=== PATIENT | male | born 1960 | race Caucasian/White ===

== ENCOUNTER 2018-09-12 11:21 | Inpatient (IN) | payer BC ==
[2018-09-12] VITALS (10 sets, daily range): BP systolic 105–132; BP diastolic 52–74; PULSE 62–89; RESP 16–20; Ht 182.9 cm; Wt 93.2 kg
[~2018-09-12] VITALS: Ht 182.9 cm; Wt 93.2 kg
[~2018-09-12 11:21] MED LIST: SEVOFLURANE 15 MIN ONE; SUCCINYLCHOLINE CHLORIDE 100 MG/5 ML SYG IV ONE
[2018-09-12] MEDS ORDERED: POLYMYXIN/BACITRACIN 1L IRRIG ONE (11:44)
[2018-09-12] MEDS ORDERED: DIVA125T PO (12:10)
[2018-09-12] MEDS ORDERED: ALBU90AE INHALATION (12:10)
[2018-09-12] MEDS ORDERED: RANI150T35 PO (12:10)
[2018-09-12] MEDS ORDERED: BUPIVACAINE 0.25%/EPI (MDV) 50 ML VIAL INJ ONE (12:16)
[2018-09-12] MEDS ORDERED: SURGIFOAM POWDER 1 GM KIT ONE (12:16)
[2018-09-12] MEDS ORDERED: THROMBIN 5000 UNIT VIAL ONE ×2 (12:16→14:51)
[2018-09-12] MEDS ORDERED: CA CHLORIDE 10% 10 ML SYRINGE ONE ×2 (12:17→14:53)
--- NOTE | 2018-09-12 12:51 | PREAC ---
Date/Time of Note Date/Time of Note DATE: 09/12/18 TIME: 12:47 Anesthesia Eval and Record Evaluation Time Pre-Procedure Interview DATE: 09/12/18 TIME: 12:47 Age 57 Sex male NPO: 8 hrs Preoperative diagnosis right L5-S1 stenosis Planned procedure right L5-S1 decompression possible discectomy Past Medical History Past Medical History: Includes Pulm: Asthma Neuro: Other (migraines) GI: GERD Surgery & Anesthesia Issues No known issue Meds Anticoagulation: No Beta Mauri within 24 hr: No Reason Beta Mauri not given: Pt. not on B-Mauri Reported Medications Albuterol Sulfate (Proair Respiclick) 90 Mcg Aer.pow.ba, 1 PUFF INHALATION Q4, #1 BOTTLE 09/12/18 Ranitidine Hcl* (Zantac*) 150 Mg Tablet, 150 MG PO HS, #30 TAB 09/12/18 Divalproex Sodium* (Depakote*) 125 Mg Tablet.dr, 125 MG PO BID WITH MEALS, #120 TAB 09/12/18 Meds reviewed: Yes Allergies Coded Allergies: No Known Allergy (Unverified , 09/12/18) Allergies Reviewed: Yes Labs/Studies Labs Reviewed: Reviewed by anesthesiologist test: N/A Studies: ECG (NSR), CXR (NAD) Pre-procedure Exam Last vitals Vital Signs Date Temp Pulse Resp B/P (MAP) Pulse Ox O2 O2 Flow FiO2 Time Delivery Rate 09/12/18 98.0 82 18 117/74 96 Room Air 12:12 (88) Airway: Adequate mouth opening, Adequate thyromental dist Mallampati: Mallampati II Teeth: Normal Lung: Normal Heart: Normal ASA Physical Status ASA physical status: 2 Emergency: None Planned Anesthetic General/MAC: ETT Planned Pain Management Parenteral pain med Pre-operative Attestations Prior to commencing anesthesia and surgery, the patient was re-evaluated, there was verification of: *The patient's identity *The results of appropriate recent lab work and preoperative vital signs *The above evaluation not changing prior to induction *Anesthetic plan, risk benefits, alternative and complications discussed with patient/family; questions answered; patient/family understands, accepts and wishes to proceed. HAZEL WILLIS MD Sep 12, 2018 12:51
[2018-09-12] MEDS ORDERED: ONDANSETRON 4 MG INJ IV PRN (13:00)
[2018-09-12] MEDS ORDERED: MEPERIDINE 25 MG INJ IV PRN (13:00)
[2018-09-12] MEDS ORDERED: PROCHLORPERAZINE 10 MG INJ IV PRN (13:00)
[2018-09-12] MEDS ORDERED: HYDROmorphONE 1 MG/5 ML IV SYRINGE IV PRN ×3 (13:00)
[2018-09-12] MEDS ORDERED: FENTAnyl 50 MCG/ML VIAL IV PRN ×3 (13:00)
[2018-09-12] MEDS ORDERED: DIPHENHYDRAMINE 50 MG INJ IV PRN ×2 (13:00→13:30)
--- NOTE | 2018-09-12 13:09 | HPN ---
Date/Time of Note Date/Time of Note DATE: 09/12/18 TIME: 13:09 Interval H&P Admission Note Pt. seen H&P reviewed: No system changes TORIBIO KILPATRICK PA-C Sep 12, 2018 13:09
[2018-09-12] MEDS ORDERED: ROCURONIUM 50 MG INJ ONE (13:18)
[2018-09-12] MEDS ORDERED: PROPOFOL 20 ML ONE (13:18)
[2018-09-12] MEDS ORDERED: FENTAnyl 50 MCG/ML VIAL ONE (13:18)
[2018-09-12] MEDS ORDERED: SUCCINYLCHOLINE CHLORIDE 100 MG/5 ML SYG IV ONE (13:18)
[2018-09-12] MEDS ORDERED: LIDOCAINE 2% (SDV) 5 ML INJ ONE (13:18)
[2018-09-12] MEDS ORDERED: ACETAMINOPHEN 325 MG TAB PO PRN (13:30)
[2018-09-12] MEDS ORDERED: AL HYDROX/MG HYDROX/SIMETH 30 ML CUP PO PRN (13:30)
[2018-09-12] MEDS ORDERED: HYDROmorphONE 0.2 MG/ML PCA IV SCH (13:30)
[2018-09-12] MEDS ORDERED: CEPASTAT LOZENGE MT PRN (13:30)
[2018-09-12] MEDS ORDERED: BISACODYL 10 MG SUPP PR PRN (13:30)
[2018-09-12] MEDS ORDERED: NALOXONE (0.4 MG/ML) INJ IV PRN (13:30)
[2018-09-12] MEDS ORDERED: HYDROmorphONE 0.5 MG/0.5 ML SYG IV PRN (13:30)
[2018-09-12] MEDS ORDERED: DEXAMETHASONE 4 MG/ML 1 ML INJ ONE (13:55)
[2018-09-12] MEDS ORDERED: CEFAZOLIN 1 GM INJ ONE (13:55)
[2018-09-12] MEDS ORDERED: ONDANSETRON 4 MG INJ ONE (13:55)
[2018-09-12] MEDS ORDERED: FAMOTIDINE 20 MG INJ ONE (13:55)
[2018-09-12] MEDS ORDERED: HEPARIN 1000 UNITS/ML 10 ML INJ ONE (13:59)
[2018-09-12] MEDS ORDERED: GELATIN SIZE 100 SPONGE ONE (14:38)
[2018-09-12] MEDS ORDERED: HYDROmorphONE 2 MG/ML SYG ONE (15:03)
[2018-09-12] MEDS ORDERED: BUPIVACAINE 0.25% (MPF) 30 ML INJ ONE (15:50)
[2018-09-12] MEDS ORDERED: NEOSTIGMINE 3 MG/3 ML SYRINGE ONE (16:01)
[2018-09-12] MEDS ORDERED: GLYCOPYRROLATE 0.4 MG INJ ONE (16:01)
--- NOTE | 2018-09-12 16:13 | SIPON ---
Date/Time of Note Date/Time of Note DATE: 09/12/18 TIME: 16:12 Operative Report Preoperative Diagnosis Right L5-S1 stenosis, disc herniation, radiculopathy Postoperative Diagnosis Right L5-S1 stenosis, disc herniation, radiculopathy Operation/Procedure Performed Right L5-S1 decompression Right L5-S1 microdiscectomy Right L5 extraforaminal decompression Surgeon see signature line dietitian assistant Nancy Butcher PA-C Anesthesia: general Estimated blood loss: 10 - 50 ml's Transfusion Required none Specimen Right L5-S1 disc Grafts/Implants none Complications none ARMANDO CUI MD Sep 12, 2018 16:13
[2018-09-12] MEDS ORDERED: EPHEDrine SULFATE 50 MG/5 ML SYG ONE (16:14)
--- NOTE | 2018-09-12 16:22 | NUR ---
PT NOTE , ORDER ACKNOWLEDGED , PER RN REPORT PATIENT STILL IN OR , PLAN TO FOLLOW UP IN AM .
--- NOTE | 2018-09-12 16:22 | NUR ---
RECEIVED FROM OR VIA BED S/P L5S1 DECOMPRESSION, L5S1 MICRODISCECTOMY RT. L5 EXTRAFORAMINAL DECOMPRESSION. IV INFUSING RT. HAND #[id number] ANGIOCATH.
--- NOTE | 2018-09-12 16:36 | PAC ---
Date/Time of Note Date/Time of Note DATE: 09/12/18 TIME: 16:36 Post-Anesthesia Notes Post-Anesthesia Note Last documented vital signs Vital Signs Date Temp Pulse Resp B/P (MAP) Pulse Ox O2 O2 Flow FiO2 Time Delivery Rate 09/12/18 98.8 16:25 09/12/18 82 18 117/74 96 Room Air 12:12 (88) Activity: WNL Respiratory function: WNL Cardiovascular function: WNL Mental status: Baseline Pain reasonably controlled: Yes Hydration appropriate: Yes Nausea/Vomiting absent: Yes Comments BP: 110/58 HR: 85 RR: 15 T: 98.8 SaO2: 100% HAZEL WILLIS MD Sep 12, 2018 16:36
[2018-09-12] MEDS ORDERED: HYDROmorphONE 1 MG/5 ML IV SYRINGE IV ONE (17:05)
--- NOTE | 2018-09-12 17:20 | NUR ---
REPORT GIVEN TO MODE OSWALD. FAMILY CALLED AND NOTIFIED RE- STATUS AND ROOM ASSIGHNMENT. GRINDING MACHINE OPERATOR DIL.0.2MG./ML INITIATED FOR PAIN MANAGEMENT . DRESSING TO LOWER BACK DRYAND INTACT. ICE PACK APPLIED. SCD ON BOTH LEGS. MOVEMENT AND SENSATION PRESENT. IV PATENT.
--- NOTE | 2018-09-12 18:00 | NUR ---
RECEIVED REPORT FROM HOME SALES CONSULTANTMODE [place]. RECEIVED PATIENT TO UNIT AT 1750 WITH RIGHT L5-S1 DECOMPRESSION AND L5-S1 MICRO DISCKECTOMY BY DR. MERCADO. PATIENT ALERT , ORIENTED, VITALS STABLE. LOWER BACK SURGICAL SITE INTACT AND NO BLEEDING OR DRAINAGE NOTED. ICE PACK GIVEN. SCD ON ON DILAUDID HOOKER MACHINE TENDER . IVSITE INTACT AND PATENT WITH FLUID ON FLOW. STARTED WITH ICE CHIPS AND WILL ADVANCE TOLERATED. INCENTIVE SPIROMETER GIVEN AND INSTRUCTED. PER FAMILY THEY WILL BRING BRACE IN THE AM. ALL SAFETY PRECAUTIONS EXPLAINED AND AND MAINTAINED SUCH BED IN THE LOWEST POSITION, ALARMS ON, BRAKES ON, CALL LIGHT WITHIN REACH. WILL CONTINUE TO MONITOR.
--- NOTE | 2018-09-12 20:21 | OPR ---
DATE OF OPERATION: 09/12/2018 PREOPERATIVE DIAGNOSES: 1. Right L5 to S1 central and paracentral disk herniation. 2. Right L5 to S1 stenosis. 3. Right L5 foraminal stenosis. 4. Right lumbar radiculopathy. POSTOPERATIVE DIAGNOSES: 1. Right L5 to S1 central and paracentral disk herniation. 2. Right L5 to S1 stenosis. 3. Right L5 foraminal stenosis. 4. Right lumbar radiculopathy. OPERATIONS PERFORMED: 1. Right L5 to S1 hemilaminotomy, partial medial facetectomy, foraminotomy. 2. Right L5 to S1 lumbar microdiskectomy. 3. Right L5 extraforaminal decompression with 7.5 mm Baxano shaver. 4. Use of C-arm fluoroscopy with interpretation without radiologist present. 5. Use of operative microscope. 6. Intraoperative neuromonitoring. PRIMARY SURGEON: Elieser Velasquez MD BOARDER HAND: Nancy Butcher PA-C NEED FOR SHIPSMITH: During this spinal surgical procedure, my life science research assistant was used to retract and protect the spinal nerves and dural sac. My life science research assistant also employed the suction catheters to ev acuate blood from the surgical field to improve visualization of the neural structures. The assistan t was medically necessary to facilitate the completion of the surgery in a safe and expeditious [facility]. [facility] regulations, as well as hospital bylaws, preclude the use of non-licensed [facility] personnel, such as operating room technicians, to perform these functions. ESTIMATED BLOOD LOSS: Less than 40 mL. DRAINS: None. SPECIMENS: Right L5 to S1 disk excision. COMPLICATIONS OF PROCEDURES: None. ANESTHESIOLOGIST: Ashleigh Jones MD TYPE OF ANESTHESIA: General. INDICATIONS FOR PROCEDURE: This is a 57-year-old gentleman with right low back pain with radiating s ymptoms down the right leg in the setting of right-sided stenosis as well as a disk herniation at L5 to S1. He has failed nonoperative measures; therefore I recommended he undergo the above procedure. Preoperatively, we discussed risks, benefits and alternatives. He understood and wished to proceed. FINDINGS: Neuromonitoring at the start of the case revealed right L5 amplitude down 30%, right S1 do wn 50%. At the end of the case, nerve signals returned to normal. The patient had severe right fora nelsy stenosis. There are large facets a bone spike into the foramen. He also has thickening of the ligamentum flavum on the right side adding to the stenosis. Furthermore, there was a right-sided an d central herniation at the L5 to S1 compressing the S1 nerve root. DESCRIPTION OF PROCEDURE IN DETAIL: The patient was identified in the preoperative holding area, giv en Ancef antibiotics in the operating room where he was successfully placed under general anesthesia. Neuromonitoring leads were placed, sequential compressive devices were applied. Remote intraoperat gino neuromonitoring was performed by Dr. Paul from 11:32 until 16:11 to include SSEP, MEP and EM G performed by [employer]. Incision was at 2:00 p.m. closed at 4:11 p.m. The patient was take n to the operating table in prone position over a Ramon frame. All bony prominences were well padde d. The back was then prepped and draped in usual sterile fashion. Using the C-arm fluoroscope, I id entified the incision site. I anesthetized the skin with Marcaine and epinephrine. Incision was the n made over the L5 to S1 level. Incision was taken down to dorsal fascia, which was incised with Bov ie cautery. I then subperiosteally dissected the right L5 and S1 lamina. Zari retractors were sravani janeen. Kerrison was placed in what was felt to be the L5 lamina and repeat lateral films obtained to c onfirm the correct levels. Once this was confirmed, microscope was brought in and a right-sided aaron laminotomy, partial medial facetectomy and foraminotomy was performed at the L5 to S1 level. Microsc ope was brought in. Ligamentum flavum was sharply dissected. The ligamentum flavum was quite thick laterally and I went out laterally in order to remove the ligamentum flavum. I then identified the S 1 nerve root which my life science research assistant retracted medially. I identified the annulus and there appeared to b e a central and right-sided herniation. I made a small slit annulotomy through which I removed multi ple free fragments. There is larger fragments more centrally, which were removed. Once the diskecto my was completed, I irrigated the disk space. I then turned my attention to the L5 foramen. There was a large facet spike superiorly which I was a ble to remove with a Kerrison punch. Then under C-arm guidance, I utilized the [employer] 7.5 mm shaver device in order to perform an extraforaminal decompression of the right L5 nerve root. I used neurom onitoring to confirm the nerve root was safe during this procedure and was able to thoroughly decompr ess the right L5 nerve root. The foramen was quite stenotic. Once the decompressions were completed , all nerve signals returned to normal. There is quite a bit of vascularization around the area and achieved hemostasis with bipolar cautery, Gelfoam, thrombin, and Surgifoam. The wound and disk space were irrigated. Valsalva maneuver was performed and there was no leak of CSF. The wound was dry an d therefore not to place a drain. I injected PPP and thrombin over the dura for hemostatic purposes. Retractors were then removed. I then closed deep fascia with #1 Vicryl stitch. I closed subcutane ous tissue with a 2-0 Vicryl stitch. Plain Marcaine was then injected. Microscope was taken off the field. A 4-0 Monocryl closure was then performed. Dermabond was then applied. The patient was the n awakened from anesthesia and taken to the recovery room in stable condition. Lap, sponge and needl e counts were correct x2. There were no apparent complications during the procedure. The patient will be admitted to the orthopedic ernst for routine postoperative care to include pain co ntrol, neurovascular checks, antibiotics and physical therapy. Dictated By: ELIESER VELASQUEZ MD BB/NATE Conf#: [id number] DID#: [id number] CC: SHARMIN JOHN MD;*EndCC*
[2018-09-12] MEDS: D5W-0.45 NACL + KCL 20 MEQ 1,000 ML IV SCH ×2 (20:35→23:03)
[2018-09-12] MEDS: CEFAZOLIN 1 GM/50 ML (PMX) 50 ML IVPB SCH ×2 (20:36→20:42)
[2018-09-12] MEDS: DIVALPROEX (EC) 125 MG TAB PO SCH (20:40)
[2018-09-12] MEDS: RANITIDINE 150 MG TAB PO SCH (20:41)
[2018-09-12] MEDS: DOCUSATE SODIUM 100 MG CAP PO SCH (20:41)
--- NOTE | 2018-09-12 21:32 | CONS ---
DATE OF ADMISSION: 09/12/2018 DATE OF CONSULTATION: 09/12/2018 POSTOP MEDICAL CONSULTATIVE NOTE REQUESTING PHYSICIAN: Elieser Velasquez MD Thank you very much for allowing me to evaluate this 57-year-old male who just underwent lumbar back surgery. HISTORICAL EVENTS: As you well know, this patient has had ongoing pain involving the right low back as well as right leg radiculopathy. Because of the lack of conservative intervention to provide impr ovement, he elected to proceed with surgery. MRIs were done of both the cervical, thoracic and lumba r spine. Postoperatively, he is in recovery and he is comfortable with vital signs being normal. PAST MEDICAL AND SURGICAL HISTORY: GERD and chart reveals a history of Lyme disease, hernia surgery, appendectomy and wrist surgery. MEDICATIONS: Include Advil p.r.n. and Zantac. SOCIAL HISTORY: He is a composer musician, nonsmoker, nondrinker. PHYSICAL EXAMINATION: GENERAL: Comfortable-appearing male in no acute distress. VITAL SIGNS: BP 118/76, pulse 72, respirations were 18. He was afebrile. EYES: Extraocular muscles were grossly full. NOSE, MOUTH, AND THROAT: Dryness of mucous membranes. NECK: No jugular venous distention, thyroid enlargement or adenopathy. LUNGS: Clear. HEART: Rhythm regular, no murmur. ABDOMEN: Nontender. Liver and spleen were not palpable. No mass or tenderness were noted. EXTREMITIES: No edema. NEUROLOGIC: No lateralizing motor weakness. IMPRESSION: 1. Stable postop lumbar back surgery. 2. History of peptic disease. We will continue H2 sofia at night. 3. Questionably on Depakote. We will confirm once he is alert why he is taking this and continue if appropriate. Dictated By: SHARMIN JOHN MD MR/NTS Conf#: [id number] DID#: [id number]
--- NOTE | 2018-09-13 00:43 | NUR ---
MODE ADAME will continuing to take care for the Patient till morning time; Patient alert, oriented x4, slow using INFORMATION SECURITY ANALYST; VS stable and normal; start to urinate good using urinal. Full report given to MODE ADAME.
--- NOTE | 2018-09-13 01:15 | NUR ---
RECEIVED PT. FROM MODE HA FOR CONTINUITY OF CARE. PT. A AND O X 4; VS IS WNL; WILL CONTINUE WITH A PLAN OF CARE.
[2018-09-13] MEDS: CEFAZOLIN 1 GM/50 ML (PMX) 50 ML IVPB SCH (05:08)
--- NOTE | 2018-09-13 06:08 | NUR ---
END OF SHIFT NOTE: PATIENT IS A AND O X 4; NOT IN DISTRESS. VS IS WNL; ALL MEDICATIONS HAVE BEEN GIVEN ORDERED AND PRN; ALL NEEDS ATTENDED; CALL LIGHT WITHIN REACH ; WILL ENDORSE TO THE DAY SHIFT RN
[2018-09-13] MEDS: D5W-0.45 NACL + KCL 20 MEQ 1,000 ML IV SCH ×2 (07:00→19:09)
[2018-09-13 07:22] VITALS: BP 93/55; PULSE 64; RESP 18
[2018-09-13] MEDS: DIVALPROEX (EC) 125 MG TAB PO SCH ×2 (08:37→17:55)
[2018-09-13] MEDS: DOCUSATE SODIUM 100 MG CAP PO SCH ×2 (08:38→21:15)
--- NOTE | 2018-09-13 08:40 | NUR ---
PT EVAL Therapy day number 1 Evaluation Start Time 08:40 Evaluation Total Time 0 min Subjective Current complaint of pain Pain Scale NUMERIC Pain Intensity 8 (0-10) Patient Stated Goal for Pain Relief 0 (0-10) Pain Level Comment back pain/surgical site pain Pre Treatment Vital Signs Stable Yes Exercise Assessment Label Bilat Lower Extremity Exercise Type Active ROM Additional Exercise Comments semi-supine APs, heel slides Supine to Sit Contact Guard Assist Transfer Sit to Stand Ability Stand by Assist Bed Mobility Sit to Supine Minimum Assist Bed Transfer Ability Contact Guard Assist Chair Transfer Ability Contact Guard Assist Sitting Tolerance 15 min Additional Mobility Comments log-roll Patient uses wheelchair Not Applicable Gait Assist Levels Contact Guard Assist Assistive Devices Front Wheel Walker Ambulation Distance 40 feet Additional Gait Comments short step length B, decreased toe off, slow tamir, increased B UE suppor Additional Stairs Assist Comments TBA Static Sitting Balance Good Dynamic Sitting Balance Good Standing Static Balance Fair plus Dynamic Standing Balance Fair plus Additional Balance Assessments Comments FWW Safety Judgement Good Activity Tolerance Good Equipment Present A pump IV pump SAP SECURITY ARCHITECT Additional Equipment Present LS BRACE Post Treatment Pain Intensity 8 0-10 Variance Documentation SEE PT EVAL PT Technical Record Comment PT EVAL Pt is a 57 yo M with PMH of GERD, lyme disease, R LBP, R radiculopathy who is now S/P R L5-S1 hemilaminectomy, partial medial facetectomy, foraminotomy and R L5-S1 lumbar microdiskectomy. Pt received in 4W ,med/surg. Precautions: spinal precautions, LS brace PRN PLOF: Pt lives with in 2SH with 0STE. Bedroom on 2nd floor, shower access on first if needed. Ambulatory without assist, does not own any DME. Was driving and works from home. Reports also works from home, able to assist as needed. CLOF: MODE Oconnor cleared pt for PT evaluation. Pt received in bed, vitals assessed at 108/64, 80bpm 95%O2 sats on RA. Pt educated in spinal precautions, use of LS brace, and purpose of PT evaluation. Bed mobility, transfer, and gait assessment as described above. Pt donned LS brace for all OOB activities, able to maintain spinal precautions with mobility. Pt returned to bed, alarm activated, all needs in reach, no signs of distress, RN notified of pt's status. Recommendation: Pt demonstrates slow, steady tamir with occasional instances of pain with ambulation (40'with FWW, CGA), relying only UE support. Pt able to maintain spinal precautions with all mobility. Anticipating home discharge once cleard by MD with family assistance as needed. Anticipated DME: FWW, 3:1 commode. Plan; Continue c PT POC (QID x 7), gait normalizaiton, stair training, PT CLEARED TO AMB TO RESTROOM WITH WOOD PANEL INSPECTOR USING FWW
[2018-09-13] MEDS: HYDROCODONE/APAP (10/325) TAB PO PRN ×4 (10:07→19:22)
--- NOTE | 2018-09-13 11:00 | NUR ---
PATIENT ALERT , ORIENTED . COMFORTABLE IN THE AM, VITALS STABLE. PATIEBNT TOBACCO DRUMMER DISCONTINUED PER ORDER. PHYSIO SEEN THE PATIENT AND CLEARED FOR BATHROOM PRIVILAGES. DIET TOLERATED. IV FLUID ON FLOW. RIGHT ARM IV INTACT AND PATENT. PATIENT SURGICAL SITE INTACT AND PATENT . NO BLEEDING NOTED. ALL SAFETY PRECAUTIONS CONTINUED SUCH BED IN THE LOWEST POSITION, ALARMS ON, BRAKES ON, CALL LIGHT WITHIN REACH. ENCOURAGED TO USE CALL LIGHT. WILL CONTINUE TO MONITOR.
--- NOTE | 2018-09-13 11:19 | CONS ---
Date/Time of Note Date/Time of Note DATE: 09/13/18 TIME: 11:15 Assessment/Plan Assessment/Plan Hospital Course S/p lumbar spine surgery POD #1 doing well Complex migraines: no current issues Assessment/Plan 1. Stable postop lumbar back surgery. 2. History of peptic disease. We will continue H2 sofia at night. 3. Depakote for migraine ppx. Pt would prefer to hold for now, which I am agreeable to 4. Pain medication as written 5. PT/OT. OOB activity Result Diagram: 09/13/18 0438 09/13/18 0438 Results 24hrs Laboratory Tests Test 09/13/18 04:38 09/13/18 06:59 White Blood Count 9.0 Red Blood Count 4.40 L Hemoglobin 13.7 L Hematocrit 40.0 L Mean Corpuscular Volume 90.9 Mean Corpuscular Hemoglobin 31.1 Mean Corpuscular Hemoglobin Concent 34.3 Red Cell Distribution Width 12.2 Platelet Count 110 L Mean Platelet Volume 11.5 H Immature Granulocytes % 0.200 Neutrophils % 77.2 H Lymphocytes % 14.6 L Monocytes % 7.8 Eosinophils % 0.1 Basophils % 0.1 Nucleated Red Blood Cells % 0.0 Immature Granulocytes # 0.020 Neutrophils # 6.9 Lymphocytes # 1.3 Monocytes # 0.7 Eosinophils # 0.0 Basophils # 0.0 Nucleated Red Blood Cells # 0.0 Sodium Level 140 Potassium Level 4.3 Chloride Level 108 Carbon Dioxide Level 26 Anion Gap 6 Blood Urea Nitrogen 12 Creatinine 0.83 Est Glomerular Filtrat Rate mL/min > 60 Glucose Level 121 Calcium Level 8.7 Magnesium Level 2.2 Lab Scanned Report REFERENCE LAB Consultation Date/Type/Reason Admit Date/Time Sep 12, 2018 at 11:21 Initial Consult Date 09/12 Type of Consult Internal Medicine Reason for Consultation Medical comanagement 24 HR Interval Summary Free Text/Dictation Pt doing well. Now on oral pain meds. Has ambulated. No BM yet. No fevers. VSS. Detailed Summary Eyes: no complaints ENT: no complaints Respiratory: no complaints Cardiovascular: no complaints Gastrointestinal: no complaints Musculoskeletal: other (minimal L thigh numbness) Neurologic: no complaints Exam/Review of Systems Vital Signs Vitals Vital Signs Date Temp Pulse Resp B/P (MAP) Pulse Ox O2 O2 Flow FiO2 Time Delivery Rate 09/13/18 98.0 64 18 93/55 (43) 96 07:22 09/12/18 Room Air 19:36 09/12/18 10.0 16:50 Intake and Output 09/12/18 09/12/18 09/13/18 1515:00 23:00 07:00 IntakeIntake Total 1400 ml 350 ml 1400 ml OutputOutput Total 65 ml 1200 ml BalanceBalance 1400 ml 285 ml 200 ml Exam Constitutional: alert, oriented, well developed Head: normocephalic, atraumatic Eyes: nl conjunctiva Neck: supple, non-tender Respiratory: clear to auscultation Cardiovascular: regular rate and rhythm Gastrointestinal: soft, non-tender Musculoskeletal: nl extremities to inspection Additional Comments Back incision healing appropriately Medications Medications Current Medications Potassium Chloride/Dextrose/ Sod Cl 1,000 ml @ 100 mls/hr Q10H IV Last administered on 09/13/18at 07:00; Admin Dose 100 MLS/HR; Start 09/12/18 at 13:09 Acetaminophen/ Hydrocodone Bitart ([place] (10/325)) 1 tab Q4H PRN PO PAIN LEVEL 1-5; Start 09/12/18 at 13:30 Acetaminophen/ Hydrocodone Bitart ([place] (10/325)) 2 tab Q4H PRN PO PAIN LEVEL 6-10 Last administered on 09/13/18at 10:07; Admin Dose 2 TAB; Start 09/12/18 at 13:30 Hydromorphone HCl (Dilaudid) 0.2 mg Q1H PRN IV BREAKTHROUGH PAIN; Start 1 11/13/17 at 13:30 Ondansetron HCl (Zofran Inj) 4 mg Q6H PRN IV NAUSEA AND/OR VOMITING; Start 09/12/18 at 13:30 Bisacodyl (Dulcolax Supp) 10 mg DAILY PRN [place] CONSTIPATION; Start 09/12/18 at 13:30 Docusate Sodium (Colace) 100 mg BID PO Last administered on 09/13/18at 08:38; Admin Dose 100 MG; Start 09/12/18 at 21:00 Al Hydrox/Mg Hydrox/Simethicone (Mag-Al Plus) 15 ml Q6H PRN PO CONSTIPATION; S tart 09/12/18 at 13:30 Acetaminophen (Tylenol Tab) 650 mg Q4H PRN PO FEVER; Start 09/12/18 at 13:30 Cyclobenzaprine HCl (Flexeril) 10 mg TID PRN PO MUSCLE SPASMS; Start 09/12/18 at 13:30 Phenol (Cepastat Lozenge) 1 lozenge PRN PRN [place] SORE THROAT; Start 09/12/18 at 13:30 Diphenhydramine HCl (Benadryl) 25 mg Q6H PRN IV ITCHING; Start 09/12/18 at 13:30 Naloxone HCl (Narcan) 0.2 mg Q2M PRN IV DECREASED REPIRATORY RATE; Start 09/12/18 at 13:30 Hydromorphone HCl (Dilaudid FAMILY MEDICINE RESIDENT) FAMILY MEDICINE RESIDENT to be started in PACU Q4PCA IV Last administered on 09/12/18at 17:07; Admin Dose 6 MG; Start 09/12/18 at 13:30 Miscellaneous Information 1. Hold FAMILY MEDICINE RESIDENT at 1,000... FAMILY MEDICINE RESIDENT IV ; Start 09/12/18 at 13:30 Divalproex Sodium (Depakote) 125 mg BID WITH MEALS PO Last administered on 09/13/18at 08:37; Admin Dose 125 MG; Start 09/12/18 at 18:00 Ranitidine HCl (Zantac) 150 mg HS PO Last administered on 09/12/18at 20:41; Admin Dose 150 MG; Start 09/12/18 at 21:00 MINGO TRAVIS MD Sep 13, 2018 11:19
--- NOTE | 2018-09-13 11:36 | PN ---
Date/Time of Note Date/Time of Note DATE: 09/13/18 TIME: 11:35 Assessment/Plan Lines/Catheters IV Catheter Type (from Nrsg): Peripheral IV Li in Place (from Nrsg): No Assessment/Plan Assessment/Plan The patient is postoperative day 1 status post lumbar decompression and discectomy. He is having back spasms and not yet ready for discharge. He will continue to work with physical therapy once he is cleared by physical therapy and pain is controlled he will be discharged to home with follow-up arranged with the undersigned Subjective 24 Hr Interval Summary Complains of back spasm Exam/Review of Systems Vital Signs Vitals Vital Signs Date Temp Pulse Resp B/P (MAP) Pulse Ox O2 O2 Flow FiO2 Time Delivery Rate 09/13/18 98.0 64 18 93/55 (68) 96 07:22 09/12/18 Room Air 19:36 09/12/18 10.0 16:50 Intake and Output 09/12/18 09/12/18 09/13/18 1515:00 23:00 07:00 IntakeIntake Total 1400 ml 350 ml 1400 ml OutputOutput Total 65 ml 1200 ml BalanceBalance 1400 ml 285 ml 200 ml Exam Free Text/Dictation Neuro intact Results Result Diagram: 09/13/18 0438 09/13/18 0438 ARMANDO CUI MD Sep 13, 2018 11:36
--- NOTE | 2018-09-13 12:05 | NUR ---
PT NOTE Therapy day number 1 Subjective Current complaint of pain Pain Scale NUMERIC Pain Intensity 8 (0-10) Patient Stated Goal for Pain Relief 0 (0-10) Pain Level Comment back pain/surgical site Pre Treatment Vital Signs Stable Yes Transfer Training Start Time 11:25 Supine to Sit Stand by Assist Transfer Sit to Stand Ability Stand by Assist Bed Mobility Sit to Supine Stand by Assist Bed Transfer Ability Contact Guard Assist Chair Transfer Ability Contact Guard Assist Toileting Ability Supervised Sitting Tolerance 5 min Additional Mobility Comments log-roll Transfer Training End Time 11:38 Total Transfer Training Time 13 min (8-127) Gait Training Start Time 11:38 Gait Assist Levels Contact Guard Assist Assistive Devices Front Wheel Walker Ambulation Distance 120 feet Additional Gait Comments short step length, increased reciprocity, improved tamir though still slo Gait Training End Time 12:05 Total Gait Training Treatment Time 27 min (8-127) Additional Stairs Assist Comments TBA Static Sitting Balance Good Dynamic Sitting Balance Good Standing Static Balance Good Dynamic Standing Balance Fair plus Additional Balance Assessments Comments FWW Safety Judgement Good Activity Tolerance Good Equipment Present A pump IV pump Additional Equipment Present LS BRACE Post Treatment Pain Intensity 8 0-10 Variance Documentation SEE PT NOTE Total Treament Time 40 min (8-127) Total Minutes 40 Total Units 3 PT Technical Record Comment PT NOTE S: Pt continues to report back pain, pre-medicated O: MODE Oconnor cleared pt for PT session. Pt received in bed, re-educated in spinal precautions. Pt participated in bed mobility, transfer, and gait interventions above. Noted with gait, improved gait tamir though still very slow, short step length B, reliance on UE support, forward flexed posture unable to stand erect due to increased back pain, increased B LE knee flexion with B stance. Pt returned to bed, all needs in reach, bed alarm activated. RN notified of pt's status. A: Pt with improved gait distance and tamir, though still ambs very slowly due to pain. Pt improving with independence in mobility tasks, able to maintain spinal precautions. P: Continue c PT POC; stair training initiation next session
[2018-09-13 14:00] VITALS: BP 108/64; PULSE 85; RESP 18
--- NOTE | 2018-09-13 14:41 | NUR ---
PT NOTE Therapy day number 1 Subjective Current complaint of pain Pain Scale NUMERIC Pain Intensity 7 (0-10) Patient Stated Goal for Pain Relief 0 (0-10) Pain Level Comment back pain/surgical site Pre Treatment Vital Signs Stable Yes Transfer Training Start Time 14:10 Supine to Sit Stand by Assist Transfer Sit to Stand Ability Stand by Assist Bed Mobility Sit to Supine Supervised Bed Transfer Ability Stand by Assist Chair Transfer Ability Stand by Assist Sitting Tolerance 5 min Additional Mobility Comments log-roll Transfer Training End Time 14:25 Total Transfer Training Time 15 min (8-127) Gait Training Start Time 14:25 Gait Assist Levels Stand by Assist Assistive Devices Front Wheel Walker Ambulation Distance 80 feet Additional Gait Comments short step length, very slow tamir, increased knee flexion B, improved po Gait Training End Time 14:41 Total Gait Training Treatment Time 16 min (8-127) Additional Stairs Assist Comments TBA Static Sitting Balance Good Dynamic Sitting Balance Good Standing Static Balance Good Dynamic Standing Balance Fair plus Additional Balance Assessments Comments FWW Safety Judgement Good Activity Tolerance Good Equipment Present A pump IV pump Additional Equipment Present LS BRACE Post Treatment Pain Intensity 7 0-10 Variance Documentation SEE PT NOTE Total Treament Time 31 min (8-127) Total Minutes 31 Total Units 2 PT Technical Record Comment PT NOTE S: Pt reports increased back pain this session, also reports nausea and lightheadedness in standing after ~40' of ambulation. Pt expressed concern for going home due to increased pain with transitional movements. O: MODE Oconnor cleared pt for PT session. Pt received in bed. Pt participated in interventions above, SBA-SPV for all mobility. Pt returned to bed, all needs in reach, bed alarm activated. RN notified of pt's nausea and status. A: Pt gait distance (80' total) limited due to increased nausea, lightheadness. Pt continues to improve in independence with all mobility tasks (SBA-SPV) though movements are labored, slow, due to increased back pain. Able to maintain spinal precautions throughout. Pt deferred stair training this date due to increased pain, but pt does have shower access on first floor. P: Continue c PT POC
[2018-09-13] MEDS: ONDANSETRON 4 MG INJ IV PRN (14:54)
--- NOTE | 2018-09-13 15:15 | NUR ---
PT NOTE Therapy day number 1 Subjective Current complaint of pain Pain Scale NUMERIC Pain Intensity 8 (0-10) Patient Stated Goal for Pain Relief 0 (0-10) Pain Level Comment back pain, surgical site Transfer Training Start Time 15:15 Supine to Sit Supervised Transfer Sit to Stand Ability Stand by Assist Bed Mobility Sit to Supine Supervised Additional Mobility Comments log roll method using BR and over head trapeze Transfer Training End Time 15:32 Total Transfer Training Time 17 min (8-127) Gait Training Start Time 15:32 Gait Assist Levels Stand by Assist Assistive Devices Front Wheel Walker Ambulation Distance 180 feet Additional Gait Comments very slow tamir, reciprocal gait, NBOS, decreased step length/stride Gait Training End Time 16:00 Total Gait Training Treatment Time 28 min (8-127) Additional Stairs Assist Comments Pt refused due to high pain Static Sitting Balance Good Dynamic Sitting Balance Good Standing Static Balance Good Dynamic Standing Balance Fair plus Additional Balance Assessments Comments FWW Safety Judgement Good Activity Tolerance Good Equipment Present A pump IV pump Additional Equipment Present LS BRACE for OOB activities Post Treatment Pain Intensity 8 0-10 Variance Documentation SEE BELOW AND PT NOTE Total Treament Time 45 min (8-127) Total Minutes 45 Total Units 3 PT Technical Record Comment PT NOTE S: Pt stated, "I am still in a lot of pain, but at least I am not nauseous or dizzy anymore." Agreeable for PT and cleared per MODE Chaney O: Received pt in supine, asleep. VCs to rouse. Bed mobility using BR and over head trapeze log roll method Supervised. Pt donned/doffed LSO brace at EOB w/Cornelius for OOB activities. Applied gait belt at EOB. STS to FWW SBA. Gait training performed w/FWW 180' SBA/Supervised. Noted very slow tamir, reciprocal gait, NBOS, decreased step length/stride, intermittent increased BUE pressure on AD, and no LOB/buckling. Pt required 3 standing rest breaks due to pain. Assisted pt back to room BTB. Left pt in comfort position, call light/phone within reach, bed alarmed, SCD's reapplied, and all needs met. MODE Rodriguez. informed of pt's status. A: Good tolerance to tx. Pt showed no signs of distress or SOB during or after tx. No c/o dizziness or nausea throughout tx. Bed mobility and gait distance improved compared to previous tx. Pt refused stairs training for this PT session due to increased pain, but is willing to attempt tomorrow. P: Continue POC and progress as tolerated.
--- NOTE | 2018-09-13 15:30 | NUR ---
CONTACTED DR. CUI REGARDING THE PATIENT AT THIS TIME PATIENT IS NOT CLEARED BY PT FOR STAIRS AND COMPLAINING OF PAIN AND PATIENT REQUESTED TO STAY FOR ANOTHER NIGHT. SAID OK . INFORMED WAREHOUSE WORKER 2ND SHIFT NIKKO REGARDING THE PATIENT STAY. PATIENT CONTINUED WITH PAIN MANAGEMENT AND ALL SAFETY PRECAUTIONS CONTINUED. WILL CONTINUE TO MONITOR.
--- NOTE | 2018-09-13 15:58 | NUR ---
Case Mngt: Spoke with patient, confirmed home address and phone number. Patient also stated that he does not have bedside commed and FWW at home. Order for BSC & FWW faxed to [facility] at F: [phone] T: [phone], will follow up.
[2018-09-13] MEDS: CYCLOBENZAPRINE 10 MG TAB PO PRN (16:02)
--- NOTE | 2018-09-13 18:40 | NUR ---
END OF SHIFT NOTE: PATIENT COMFORTABLE IN THE PM AND PAIN MANAGEMENT CONTINUED. ALL SAFETY PRECAUTIONS CONTINUED . PERIOPERATIVE EDUCATOR ROSARIO WATSON FOLLOWED UP AND ORGANIZING THE FRONT WHELL WALKER AND COMMODE. WILL CONTINUE TO MONITOR.
[2018-09-13] MEDS: RANITIDINE 150 MG TAB PO SCH (21:15)
[2018-09-14 02:30] VITALS: BP 108/56; PULSE 103; RESP 18
[2018-09-14] MEDS: HYDROCODONE/APAP (10/325) TAB PO PRN ×4 (04:46→23:33)
[2018-09-14] MEDS: D5W-0.45 NACL + KCL 20 MEQ 1,000 ML IV SCH ×2 (05:07→15:09)
[2018-09-14] MEDS: ONDANSETRON 4 MG INJ IV PRN ×2 (06:43→19:56)
[2018-09-14] MEDS: DIVALPROEX (EC) 125 MG TAB PO SCH ×2 (07:50→17:55)
[2018-09-14 07:58] VITALS: BP 112/60; PULSE 91; RESP 18
[2018-09-14] MEDS: DOCUSATE SODIUM 100 MG CAP PO SCH ×2 (09:27→20:33)
--- NOTE | 2018-09-14 10:46 | NUR ---
PT NOTE , 2 Subjective Current complaint of pain Pain Scale NUMERIC Pain Intensity 5 (0-10) Patient Stated Goal for Pain Relief 0 (0-10) Pain Level Comment BACK PAIN Pre Treatment Vital Signs Stable Yes Exercise Assessment Label Bilat Lower Extremity Exercise Type Active ROM Additional Exercise Comments AP, KNEE FLEX, EXT, LOG ROLL TR , ISOMETRIC EXE'S BLE'S . Exercise Start Time 09:30 Exercise End Time 09:42 Total Exercise Time 12 min (8-127) Transfer Training Start Time 09:42 Supine to Sit Stand by Assist Transfer Sit to Stand Ability Stand by Assist Bed Mobility Sit to Supine Stand by Assist Bed Transfer Ability Stand by Assist Chair Transfer Ability Stand by Assist Toileting Ability Supervised Sitting Tolerance 12 min Additional Mobility Comments LOG ROLL TR Transfer Training End Time 09:54 Total Transfer Training Time 12 min (8-127) Patient uses wheelchair Not Applicable Gait Training Start Time 09:54 Gait Assist Levels Stand by Assist Assistive Devices Front Wheel Walker Ambulation Distance 300 feet Additional Gait Comments SLOW ANNIKA , REQUIRES FREQUENT STANDING REST PERIODS DURING GAIT TR Gait Training End Time 10:25 Total Gait Training Treatment Time 31 min (8-127) Additional Stairs Assist Comments REFUSED STAIR TR IN AM . Static Sitting Balance Good Dynamic Sitting Balance Good Standing Static Balance Good Dynamic Standing Balance Good Additional Balance Assessments Comments W/FWW Safety Judgement Good Activity Tolerance Good Equipment Present A pump Additional Equipment Present L/S CORSET Post Treatment Pain Intensity 3 0-10 Variance Documentation SEE BELOW . Total Treament Time 55 min (8-127) Total Minutes 55 Total Units 4 PT Technical Record Comment PT NOTE , S: RN CLEARED , PATIENT AGREEABLE ,PATIENT WAS PRE-MEDICATED FOR PAIN , PATIENT IS EXTREMELY SLOW C/O BACK PAIN AND SEVERE STIFFNESS . O: RE-INSTRUCTED THE PATIENT IN SAFETY, LOG ROLL, SPINE PRECAUTION , BODY MECHANICS AND POSTURE CORRECTION , GAIT W/FWW EXTREMELY SLOW WITH SLOW ANNIKA GAIT PATTERN , GAIT W/FWW STEADY AND STABLE , NO LOB NOTED , PATIENT REQUIRES MULTIPLE STANDING REST PERIODS DUE TO FATIGUE EASILY , UNWILLING TO PERFORM STAIR TR. RETURNED BACK TO BED SBA , VS STABLE TOLERATED TREATMENT WELL , PATIENT IS CLEARED TO GET OOB WITH NSG STAFF , DON / DOFF L/S CORSET IND . A: DC PLANNING PER MD RECOMMENDATION PATIENT WILL NEED FWW AND BED SIDE COMMODE ONCE DC HOME WITH FAMILY . P: CONTINUE WITH POC
--- NOTE | 2018-09-14 11:00 | NUR ---
PT REPORTED THAT THE PATIENT STATED HE WILL NOT BE DISCHARGED TODAY.
[2018-09-14] MEDS ORDERED: KETOROLAC 30 MG INJ IV STA (12:15)
[2018-09-14] MEDS: CYCLOBENZAPRINE 10 MG TAB PO PRN (12:20)
--- NOTE | 2018-09-14 12:53 | CONS ---
Date/Time of Note Date/Time of Note DATE: 09/14/18 TIME: 12:50 Assessment/Plan Assessment/Plan Hospital Course S/p lumbar spine surgery POD #1 doing well Complex migraines: no current issues Assessment/Plan 1. Continue PT, OOB activity 2. Add miralax BID, continue bowel regimen. Can try suppository tomorrow if no BM 3. Ok to hold Depakote, pt does not want to use it currently (for migraine ppx) 4. DVT ppx Result Diagram: 09/13/1843709/[id number]/18437 Consultation Date/Type/Reason Admit Date/Time Sep 12, 2018 at 11:21 Initial Consult Date 09/12 Type of Consult Internal Medicine Reason for Consultation Medical co-management 24 HR Interval Summary Free Text/Dictation Doing well. L thigh numbness resolving. Ambulating. Pain controlled. No BM or flatus yet. No RUSSO/migraine. No fevers Constitutional: no complaints Detailed Summary Eyes: no complaints Respiratory: no complaints Cardiovascular: no complaints Gastrointestinal: no complaints, constipation Neurologic: no complaints Exam/Review of Systems Vital Signs Vitals Vital Signs Date Temp Pulse Resp B/P (MAP) Pulse Ox O2 O2 Flow FiO2 Time Delivery Rate 09/14/18 99.5 91 18 112/60 91 07:58 (77) 09/12/18 Room Air 19:36 09/12/18 10.0 16:50 Intake and Output 09/13/18 09/13/18 09/14/18 1515:00 23:00 07:00 IntakeIntake Total 1000 ml 1000 ml OutputOutput Total 1300 ml 300 ml BalanceBalance -300 ml 1000 ml -300 ml Exam Constitutional: alert, oriented, well developed Psych: no complaints, nl mood/affect Head: normocephalic, atraumatic Eyes: nl conjunctiva Respiratory: clear to auscultation, normal air movement Cardiovascular: regular rate and rhythm, nl pulses Gastrointestinal: soft, non-tender Neurological: SUGAR PLANTATION MANAGER II-XII intact, nl mental status Medications Medications Current Medications Potassium Chloride/Dextrose/ Sod Cl 1,000 ml @ 100 mls/hr Q10H IV Last administered on 09/13/18at 07:00; Admin Dose 100 MLS/HR; Start 09/12/18 at 13:09 Acetaminophen/ Hydrocodone Bitart (Alexander (10325)) 1 tab Q4H PRN PO PAIN LEVEL 1-5 Last administered on 09/14/18at 09:33; Admin Dose 1 TAB; Start 09/12/18 at 13:30 Acetaminophen/ Hydrocodone Bitart (Alexander ()) 2 tab Q4H PRN PO PAIN LEVEL 6-10 Last administered on 09/14/18at 04:46; Admin Dose 2 TAB; Start 09/12/18 at 13:30 Hydromorphone HCl (Dilaudid) 0.2 mg Q1H PRN IV BREAKTHROUGH PAIN Last administered on 09/14/18at 06:43; Admin Dose 0.2 MG; Start 09/12/18 at 13:30 Ondansetron HCl (Zofran Inj) 4 mg Q6H PRN IV NAUSEA AND/OR VOMITING Last administered on 09/14/18at 06:43; Admin Dose 4 MG; Start 09/12/18 at 13:30 Bisacodyl (Dulcolax Supp) 10 mg DAILY PRN [place] CONSTIPATION; Start 09/12/18 at 13:30 Docusate Sodium (Colace) 100 mg BID PO Last administered on 09/14/18at 09:27; Admin Dose 100 MG; Start 09/12/18 at 21:00 Al Hydrox/Mg Hydrox/Simethicone (Mag-Al Plus) 15 ml Q6H PRN PO CONSTIPATION; Start 09/12/18 at 13:30 Acetaminophen (Tylenol Tab) 650 mg Q4H PRN PO FEVER; Start 09/12/18 at 13:30 Cyclobenzaprine HCl (Flexeril) 10 mg TID PRN PO MUSCLE SPASMS Last administered on 09/14/18at 12:20; Admin Dose 10 MG; Start 09/12/18 at 13:30 Phenol (Cepastat Lozenge) 1 lozenge PRN PRN MT SORE THROAT; Start 09/12/18 at 13:30 Diphenhydramine HCl (Benadryl) 25 mg Q6H PRN IV ITCHING; Start 09/12/18 at 13:30 Naloxone HCl (Narcan) 0.2 mg Q2M PRN IV DECREASED REPIRATORY RATE; Start 09/12/18 at 13:30 Hydromorphone HCl (Dilaudid DAIRY BACTERIOLOGIST) DAIRY BACTERIOLOGIST to be started in PACU Q4PCA IV Last administered on 09/12/18at 17:07; Admin Dose 6 MG; Start 09/12/18 at 13:30 Miscellaneous Information 1. Hold DAIRY BACTERIOLOGIST at 1,000... DAIRY BACTERIOLOGIST IV ; Start 09/12/18 at 13:30 Divalproex Sodium (Depakote) 125 mg BID WITH MEALS PO Last administered on 09/13/18at 08:37; Admin Dose 125 MG; Start 09/12/18 at 18:00 Ranitidine HCl (Zantac) 150 mg HS PO Last administered on 09/13/18at 21:15; Admin Dose 150 MG; Start 09/12/18 at 21:00 MINGO TRAVIS MD Sep 14, 2018 12:53
--- NOTE | 2018-09-14 13:20 | PN ---
DATE: 09/14/2018 The patient is complaining of persistent low back discomfort and spasms. He is having difficulty wit h physical therapy. He held off on therapy this morning. A dose of Toradol will be prescribed to se e if that will reduce his pain to allow him to continue further physical therapy. Once he is cleared by physical therapy, he will be discharged to home. If we can control his pain, this may be later t arthur if not tomorrow. Dictated By: ARMANDO CUI MD BB/NTS Conf#: [id number] DID#: [id number] CC: SHARMIN JOHN MD;*End*
--- NOTE | 2018-09-14 13:30 | NUR ---
Case Mngt F/U: Bedside Commode and FWW delivered at patient's bedside and paperwork signed by patient.
[2018-09-14] MEDS: POLYETHYLENE GLYCOL 17 GM PACKET GTB SCH ×2 (14:18→20:33)
[2018-09-14 14:23] VITALS: BP 116/71; PULSE 86; RESP 18
--- NOTE | 2018-09-14 18:03 | NUR ---
EOSS: PT'S HEMODYNAMICS AND RESPIR. STATUS ARE STABLE. NO COMPLICATIONS. NO CHANGES IN CONDITION. PAIN MGMT IS EFFECTIVE. WILL CONT. MONITORING. WILL CONT. W/ THE PLAN OF CARE.
[2018-09-14] MEDS: RANITIDINE 150 MG TAB PO SCH (20:33)
[2018-09-14 20:55] VITALS: BP 121/67; PULSE 86; RESP 18
[2018-09-15] MEDS: D5W-0.45 NACL + KCL 20 MEQ 1,000 ML IV SCH ×2 (00:42→11:09)
[2018-09-15 03:25] VITALS: BP 109/63; PULSE 89; RESP 18
[2018-09-15 04:00] VITALS: BP 100/73; PULSE 67; RESP 16
--- NOTE | 2018-09-15 06:51 | NUR ---
END OF SHIFT SUMMARY: PATIENT RESTING COMFORTABLY. V/S STABLE. PATIENT GIVEN NORCO X 1 THIS SHIFT. VOIDING WELL AND PASSING GAS, NO BM THIS SHIFT. CALL LIGHT AND PHONE IN PLACE. INSTRUCTED PATIENT TO CALL FOR ASSISTANCE. BED ALARM SET. WILL ENDORSE PLAN OF CARE TO AM RN.
[2018-09-15 07:40] VITALS: BP 104/57; PULSE 64; RESP 18
--- NOTE | 2018-09-15 08:45 | NUR ---
PT NOTE Therapy day number 3 Subjective Current complaint of pain Pain Scale NUMERIC Pain Intensity 8 (0-10) Patient Stated Goal for Pain Relief 0 (0-10) Pain Level Comment back pain, R hamstring, R groin Pre Treatment Vital Signs Stable Yes Exercise Assessment Label Bilat Lower Extremity Exercise Type Active ROM Additional Exercise Comments pt ed, abdominal bracing with BLE Heel slides, BUE GHJ alternat flex Exercise Start Time 08:30 Exercise End Time 08:45 Total Exercise Time 15 min (127) Transfer Training Start Time 08:45 Transfer Sit to Stand Ability Stand by Assist Bed Mobility Sit to Supine Stand by Assist Bed Transfer Ability Stand by Assist Chair Transfer Ability Stand by Assist Toileting Ability Supervised Sitting Tolerance 10 min Additional Mobility Comments log roll, bed flat, no BR or trapeze Transfer Training End Time 09:10 Total Transfer Training Time 25 min () Gait Training Start Time 09:10 Gait Assist Levels Stand by Assist Assistive Devices Front Wheel Walker Ambulation Distance 200 feet Additional Gait Comments slow tamir, steady, recipr, 2 standing rest stops due to pain, no LOB Gait Training End Time 09:25 Total Gait Training Treatment Time 15 min () Stair Training Start Time 09:25 Stair Climbing Ability Stand by Assist Number of Stairs 16 Stairs Additional Stairs Assist Comments 4 stairs up/down x4, 2 HR, good sequencing, no buckl/LOB, decr tamir Stair Training End Time 09:40 Total Stair Training Time 15 min (127) Static Sitting Balance Good Dynamic Sitting Balance Good Standing Static Balance Good Dynamic Standing Balance Good Additional Balance Assessments Comments w/ FWW Safety Judgement Good Activity Tolerance Good Equipment Present A pump Additional Equipment Present L/S CORSET Post Treatment Pain Intensity 8 0-10 Variance Documentation See Below Total Treament Time 70 min (127) Total Minutes 70 Total Units 5 PT Technical Record Comment PT NOTE S: Pt reports back pain, requests pain med post-PT. Cleared for PT per MODE Villalpando. O: Pt received on toilet wearing LS corset, with FWW, TAX COMMISSIONER in room to assist, pt in no apparent distress. Pt transferred to with SBA FWW, VC for AD mgmt and transfer safety. Transported pt to PT gym for stair tr. Performed stair tr, gait tr, transfer tr, bed mobility tr and pt ed for thera ex/ stretches per tech record with SBA to supervised assist, using FWW. Pt with slow tamir, steady, reciprocal gait, 2 standing rest stops due to pain, no LOB/buckling, improved upright posture and decreased upper trap activation with VC. Pt BTB and positioned for comfort post-tx with call light and needs in reach, bed alarm armed, MODE Villalpando present in room, pt in no apparent acute distress. A: Pt liliya tx well, with good safety awareness and good return demo bed mobility with spinal precautions. Continues to be limited by pain. P: Cont POC
[2018-09-15] MEDS: HYDROCODONE/APAP (10/325) TAB PO PRN (09:41)
[2018-09-15] MEDS: DIVALPROEX (EC) 125 MG TAB PO SCH ×2 (09:42→17:55)
[2018-09-15] MEDS: POLYETHYLENE GLYCOL 17 GM PACKET GTB SCH (09:42)
[2018-09-15] MEDS: DOCUSATE SODIUM 100 MG CAP PO SCH (09:42)
--- NOTE | 2018-09-15 16:39 | NUR ---
DISCHARGE NOTE: Patient was educated on all discharge instructions and verbalized understanding. Patient's IV access was removed with catheter tip intact and dry gauze applied to site. Patient had no questions at discharge. Patient waiting for spouse to pick him up and take him. Patient has all DMEs.
--- NOTE | 2018-09-15 18:31 | NUR ---
NURSE NOTE: Patient left hospital in stable condition. Patient refused to take bedside commode.
--- NOTE | 2018-09-17 12:16 | DS ---
Date/Time of Note Date/Time of Note DATE: 09/17/18 TIME: 12:15 Discharge Summary Admission/Discharge Info Admit Date/Time Sep 12, 2018 at 11:21 Discharge Date/Time Sep 15, 2018 at 18:30 Discharge Diagnosis Status post lumbar decompression Patient Condition: Fair Procedures Lumbar decompression and discectomy Hospital Course Patient was admitted to the orthopedic ernst after undergoing the above procedure. His postoperative course was uncomplicated however he did have issues with pain control and to be cleared by physical therapy. Ultimately he was cleared and discharged to home in stable condition with follow-up arranged with the undersigned Home Meds Reported Medications Albuterol Sulfate (Proair Respiclick) 90 Mcg Aer.pow.ba, 1 PUFF INHALATION Q4, #1 BOTTLE 09/12/18 Ranitidine Hcl* (Zantac*) 150 Mg Tablet, 150 MG PO HS, #30 TAB 09/12/18 Divalproex Sodium* (Depakote*) 125 Mg Tablet.dr, 125 MG PO BID WITH MEALS, #120 TAB 09/12/18 Primary Care Provider Not On Staff Doctor ARMANDO CUI MD Sep 17, 2018 12:16
== END 2018-09-15 18:30 | disposition home or self-care (01) | DRG 520 ==
LOC: REC 11:21 → MS1 17:50
PROVIDERS: ADMIT Specialist; ATTEND Specialist
PROC: 01NB0ZZ Release Lumbar Nerve, Open Approach (ICD-10-PCS; 2018-09-12)
PROC: 4A11X4G Monitoring of Peripheral Nervous Electrical Activity, Intraoperative, External Approach (ICD-10-PCS; 2018-09-12)
PROC: 0SB40ZZ Excision of Lumbosacral Disc, Open Approach (ICD-10-PCS; principal; 2018-09-12 13:00)
DX: M51.17 Intervertebral disc disorders with radiculopathy, lumbosacral region (principal); M48.07 Spinal stenosis, lumbosacral region; M48.061 Spinal stenosis, lumbar region without neurogenic claudication
CPT/HCPCS: 72100; 80048; 83735; 85025; 86999; 88304; 97110; 97116; 97161; 97530; J0690; J1100; J1170; J1644; J1885; J2405; J2710; J3010; J3480